=== PATIENT | male | born 1975 | race Caucasian/White ===

== ENCOUNTER 2022-08-17 22:11 | Emergency (ER) | payer OTHER, SELFPAY ==
[2022-08-17 22:34] VITALS: BP 153/103; PULSE 79; TEMP 36.2; O2SAT 98; BMI 38.3
[2022-08-17 23:29] VITALS: PULSE 85; O2SAT 98
--- NOTE | 2022-08-19 13:24 | ED.GENADULT ---
HPI - General Adult General Chief complaint: Ear/Nose/Throat Problem Stated complaint: Extra Duct in Ear Infected - Left Ear Time Seen by Provider: 08/17/22 22:34 History of Present Illness HPI narrative: 46-year-old man presenting to the emergency department with complaint of swelling and pain superior anterior to the left ear. Notes a history of pit or tract here for as long as he can remember. Other family members have the same. It is never really caused any trouble before. Over the last couple of days has become more tender and swollen. He was able to express some material from it earlier. Has had no fever. There has been no trauma otherwise. Pain is radiating in the area. Related Data Home Medications Medication Instructions Recorded Confirmed lisinopril 10 mg tablet mg 08/17/22 omeprazole 40 mg capsule,delayed mg 08/17/22 release Allergies Allergy/AdvReac Type Severity Reaction Status Date / Time No Known Drug Allergies Allergy Verified 08/17/22 22:34 Review of Systems Status of ROS: Reports: 6 or more systems reviewed and unremarkable except as noted in History and below PFSH PFS Social History Smoking Status: Former smoker How often do you have a drink containing alcohol: never How often do you have six or more drinks on one occasion: Never AUDIT-C Alcohol total score: 0 Non-prescribed substance use: denies use Exam Narrative: Exam Narrative: Pleasant. NAD. Skin is warm and dry. Head is atraumatic. There is what appears to be a preauricular pit ahead of the left upper ear. There is some mild swelling in the area and moderate tenderness. Mild calor but no marked erythema. Swelling does not really extend to the pin a. Ear canal is clear TMs clear. Opens and closes jaw without apparent difficulty. Const: Documenting provider has reviewed patient's vital signs: yes Course Vital Signs Vital signs: Initial Vital Signs Temperature 97.1 F L 08/17/22 22:34 Temperature Source Temporal Artery Scan 08/17/22 22:34 Pulse Rate 79 08/17/22 22:34 Blood Pressure 153/103 H 08/17/22 22:34 Blood Pressure Mean 119 08/17/22 22:34 Blood Pressure Position Sitting 08/17/22 22:34 Pulse Oximetry 98 08/17/22 22:34 Oxygen Delivery Method 08/17/22 22:34 Vital Signs Temperature 97.1 F L 08/17/22 22:34 Pulse Rate 79 08/17/22 22:34 Blood Pressure 153/103 H 08/17/22 22:34 Pulse Oximetry 98 08/17/22 22:34 Oxygen Delivery Method 08/17/22 22:34 Temperature 97.1 F L 08/17/22 22:34 Pulse Rate 85 08/17/22 23:29 Blood Pressure 153/103 H 08/17/22 22:34 Pulse Oximetry 98 08/17/22 23:29 Oxygen Delivery Method 08/17/22 23:29 Medical Decision Making MDM Narrative Medical decision making narrative: I do not see significant cellulitis here. Think the degree of discomfort he is having does indicate some infectious etiology. Potentially some sebaceous like material has reached to tipping point within this pre-auricular cyst. I did attempt after cleansing with Betadine, some expression. Very small point of possible sero-purulent material was expressed which I collected for wound culture. This was quite tender. Pain escalated then in a pulsatile manner. I do think antibiotics would be prudent. I am not convinced that this is excisable at this point. Discharge Plan Discharge Clinical Impression: Congenital pit, preauricular, Preauricular cyst Patient Disposition: Home, Self-Care Condition: Stable Additional Instructions: Culture will be pending here to better direct antibiotics if things are not improving. I would expect this to be more red and swollen tomorrow and may be even more so the next day. Be seen however if a good portion of the ear is becoming red/hot/swollen and especially if you have a fever. Warm moist packs might help mobilize some of this; apply a couple to 3 times daily. Can take up to 800 mg of ibuprofen or up to 1000 mg of acetaminophen per dose. Alternative to the ibuprofen might be up to 500 mg naproxen 2 times daily. Augmentin -- I think 8 days of antibiotic should be enough. [place] from [facility]. Each tablet has 325 mg of acetaminophen in it. Prescriptions: No Action omeprazole 40 mg capsule,delayed release(DR/EC) lisinopril 10 mg tablet Stand Alone [facility]: [facility] Info Instructions
== END 2022-08-17 23:44 | disposition home or self-care (01) ==
PROVIDERS: Emergency Provider Family Medicine; PCP Family Medicine
DX: Q18.1 Preauricular sinus and cyst (principal)
CPT/HCPCS: 87070; 87186; 99283

== ENCOUNTER 2022-08-23 07:53 | Emergency (ER) | payer OTHER, SELFPAY ==
[2022-08-23 07:58] VITALS: BP 127/85; PULSE 66; RESP 16; TEMP 36.2; O2SAT 98; BMI 38.3
[2022-08-23 10:20] LABS: Basophils Absolute Auto 0.04 K/uL (0.00-0.30); Basophils Percent Auto 0.5 % (0.0-3.0); Eosinophils Absolute Auto 0.09 K/uL (0.00-0.50); Eosinophils Percent Auto 1.2 % (0.0-7.0); Hematocrit 43.8 % (37.0-53.0); Hemoglobin* 14.7 gm/dL (13.5-17.5); Immature Granulocytes Abs Auto 0.02 K/uL (0.00-0.30); Immature Granulocytes Pct Auto 0.3 %; Lymphocytes Absolute Auto 1.95 K/uL (0.90-2.90); Lymphocytes Percent Auto 25.3 % (20-44); Mean Corpuscular HGB Conc 34 gm/dL (32-36); Mean Corpuscular Hemoglobin 31 pg (26-34); Mean Corpuscular Volume 93 fL (80-100); Monocytes Percent Auto 7.4 % (0.0-11.0); Neutrophils Absolute Auto 5.03 K/uL (1.7-7.0); Neutrophils Percent Auto 65.3 % (42.0-72.0); Platelet Count* 291 K/uL (140-440); RDW Coefficient of Variation % 11.1 % (11.5-15.5); Red Blood Count 4.71 m/uL (4.30-5.90)
[2022-08-23 10:27] LABS: Slide Review Reflex No
[2022-08-23 10:43] LABS: C Reactive Protein* 1.6 mg/dL (0.5-1.0)
--- NOTE | 2022-08-23 11:18 | PC.NURSE ---
up to the bathroom via ambulatory with the antibiotic continues to infuse. appointment set up for Tomorrow at 1030 (08/24/22)
[2022-08-23 12:27] LABS: Estimated Glomerular Filt Rate 93 ml/min
--- NOTE | 2022-08-23 13:05 | ED.GENADULT ---
HPI - General Adult General Date Seen: 08/23/22 Chief complaint: Ear/Nose/Throat Problem Stated complaint: Needs IV antibiotic Time Seen by Provider: 08/23/22 08:05 Source: patient History of Present Illness HPI narrative: Patient is a 46-year-old male who was seen here on the , 4 days ago. 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 It has not bothered him until few days ago when it started to drain a little bit became a little bit red a little bit painful. He was started on antibiotics to be on the safe side, cultures were sent of the fluid that was draining at that time. Those have since returned growing Enterococcus faecalis, sensitive to vancomycin, ampicillin, linezolid. He was started on Augmentin, had not felt like he was improving and in fact developed more redness and tenderness on the side of his face near his ear. He was seen at [facility] yesterday, switch to Bactrim, given a shot of Rocephin but presented there again due to failure to improve. He was told to come here for IV antibiotics. He denies any systemic complaints, no fevers, chills, weakness, vomiting. He has not had any drainage out of that area. Related Data Home Medications Medication Instructions Recorded Confirmed lisinopril 10 mg tablet 10 mg PO DAILY 08/17/22 08/23/22 omeprazole 40 mg capsule,delayed 40 mg PO DAILY 08/17/22 08/23/22 release Allergies Allergy/AdvReac Type Severity Reaction Status Date / Time No Known Drug Allergies Allergy Verified 08/23/22 08:07 Review of Systems Status of ROS: Reports: 10 or more systems reviewed and unremarkable except as noted in History and below [facility] Social History Smoking Status: Former smoker Do you use any of these nicotine containing products: None How often do you have a drink containing alcohol: never How often do you have six or more drinks on one occasion: Never AUDIT-C Alcohol total score: 0 Non-prescribed substance use: denies use Exam Narrative: Exam Narrative: Vital signs as noted above. In general, an alert, well-appearing patient. Head: Normocephalic, atraumatic. Eyes: Pupils are equal reactive. Extraocular movements are full. Conjunctivae are normal. ENT: Mucous membranes are moist. Throat is normal. At the junction of the upper left ear with the skull, he has induration, erythema, mild tenderness. There is no fluctuance, I do not see any drainable fluid collection. TM is normal. The remainder of the pinna is normal. Everything on the right is normal. Neck: Supple without lymphadenopathy. Heart: Regular rate and rhythm. No murmur or rub. Lungs: Clear bilaterally. No increased work of breathing, crackles or wheezes. Neurologic: Patient is alert and oriented to person and place. Speech is fluent. Face is symmetric. Moves all extremities equally. Affect: Normal. Skin: Warm and dry. Well perfused. Const: Vital Signs, click to edit/add: Vital Signs - 24 hr 08/23/22 07:58 Temperature 97.1 F L Pulse Rate [Right Pulse Oximeter] 66 Respiratory Rate 16 Blood Pressure [Ri ght Upper Arm] 127/85 Pulse Oximetry 98 Oxygen Delivery Me thod Room Air Documenting provider has reviewed patient's vital signs: yes Course Course Hospital Course: I checked a white count and a CRP, these are pretty unremarkable. White blood cell count is normal and CRP is 1.6. Given the susceptibilities of the Enterococcus, I do think IV antibiotics are going to be our best bet. I gave him vancomycin here. He is systemically well appearing, certainly do not see any indication otherwise for admission to the hospital and he would strongly prefer to get IV antibiotics as an outpatient even if it means he has to come back to the hospital couple times a day. I did talk with Dr. Morton, who would be willing to fit him in in a couple of days to evaluating clinic. The sinus tract will need to be excised, but we need to get the infection under control 1st. Will continue vancomycin q.12 hours for a couple of days here and then have him see Dr. Morton in in clinic. If at any time he is acutely worsening, develops fever, chills, spreading cellulitis, he should return to the ER more urgently. Vital Signs Vital signs: Initial Vital Signs Temperature 97.1 F L 08/23/22 07:58 Temperature Source Temporal Artery Scan 08/23/22 07:58 Pulse Rate 66 08/23/22 07:58 Respiratory Rate 16 08/23/22 07:58 Blood Pressure 127/85 08/23/22 07:58 Blood Pressure Mean 99 08/23/22 07:58 Blood Pressure Position Sitting 08/23/22 07:58 Pulse Oximetry 98 08/23/22 07:58 Oxygen Delivery Method 08/23/22 07:58 Vital Signs Temperature 97.1 F L 08/23/22 07:58 Pulse Rate 66 08/23/22 07:58 Respiratory Rate 16 08/23/22 07:58 Blood Pressure 127/85 08/23/22 07:58 Pulse Oximetry 98 08/23/22 07:58 Oxygen Delivery Method 08/23/22 07:58 Temperature 97.1 F L 08/23/22 07:58 Pulse Rate 66 08/23/22 07:58 Respiratory Rate 16 08/23/22 07:58 Blood Pressure 127/85 08/23/22 07:58 Pulse Oximetry 98 08/23/22 07:58 Oxygen Delivery Method 08/23/22 07:58 Medical Decision Making Lab Data Labs: Lab Results 08/23/22 08/23/22 08/23/22 Range/Units 10:13 10:13 10:13 WBC 7.70 (4.50-11.00) K/uL RBC 4.71 (4.30-5.90) m/uL Hgb 14.7 (13.5-17.5) gm/dL Hct 43.8 (37.0-53.0) % MCV 93 (80-100) fL MCH 31 (26-34) pg MCHC 34 (32-36) gm/dL RDW Coeff of Guillermo 11.1 L (11.5-15.5) % Plt Count 291 (140-440) K/uL Neut % (Auto) 65.3 (42.0-72.0) % Lymph % (Auto) 25.3 (20-44) % Heard % (Auto) 7.4 (0.0-11.0) % Eos % (Auto) 1.2 (0.0-7.0) % Baso % (Auto) 0.5 (0.0-3.0) % Neut # (Auto) 5.03 (1.7-7.0) K/uL Lymph # (Auto) 1.95 (0.90-2.90) K/uL Heard # (Auto) 0.60 (0.00-0.90) K/UL Eos # (Auto) 0.09 (0.00-0.50) K/uL Baso # (Auto) 0.04 (0.00-0.30) K/uL Creatinine 1.0 (0.5-1.5) mg/dL Estimated Creat Clear 103.20 Estimated GFR 93 ml/min C-Reactive Protein 1.6 H (0.5-1.0) mg/dL Discharge Plan Discharge Clinical Impression: Cellulitis, Congenital pit, preauricular Patient Disposition: Home, Self-Care Condition: Stable Instructions: Cellulitis (ED) Additional Instructions: Return daily for IV vancomycin as discussed. Follow-up with Dr. Morton on Tuesday. Call [phone] to schedule. You can let them know that I spoke with him, and he said they could over book you on Tuesday in his clinic, as he will likely not have any open appointments. If you have worsening, fevers, spreading redness, vomiting, chills, or other worsening, return to the ER at any time. You do not need to continue your oral antibiotics for now. Arrangements made for Vancomycin infusion as an outpatient for 08/24/22 at 1030 in the infusion center at the hospital. Prescriptions: No Action omeprazole 40 mg capsule,delayed release(DR/EC) 40 mg PO DAILY lisinopril 10 mg tablet 10 mg PO DAILY Follow Up/Referrals: David Melvin MD [Primary Care Provider] - Stand Alone Forms: [employer] Info Instructions
== END 2022-08-23 12:09 | disposition home or self-care (01) ==
PROVIDERS: Emergency Provider Emergency Medicine; PCP Family Medicine
DX: Q18.1 Preauricular sinus and cyst (principal); L03.90 Cellulitis, unspecified
CPT/HCPCS: 36415; 82565; 85025; 86140; 96365; 99284; J3370; J7120

== ENCOUNTER 2022-08-24 17:05 | Emergency (ER) | payer OTHER, SELFPAY | END 2022-08-24 17:39 | disposition left against medical advice (07) | LOC: ED 17:28 | PROVIDERS: PCP Family Medicine | DX: Z53.21 Procedure and treatment not carried out due to patient leaving prior to being seen by health care provider (principal) | CPT/HCPCS: 99199 ==

== ENCOUNTER 2022-08-25 08:15 | Outpatient (RCR) | payer OTHER, SELFPAY ==
[2022-08-23 21:45] VITALS: BP 151/88; PULSE 71; RESP 18; TEMP 36.9; O2SAT 98
[2022-08-23] MEDS: 0.9 % SODIUM CHLORIDE 250 ml IV (22:03)
[2022-08-23] MEDS: SODIUM CHLORIDE 0.9 % (FLUSH) 10 ML SYRINGE 5 ML IVF (22:03)
[2022-08-23 23:40] VITALS: BP 141/85; PULSE 60; RESP 18; TEMP 36.4; O2SAT 98
--- NOTE | 2022-08-24 00:47 | PC.NURSE ---
Infusion: Pt tolerated Vanco infusion w/o complication, VS WNL
[2022-08-24 09:17] VITALS: BP 124/78; PULSE 70; RESP 16; TEMP 36.1; O2SAT 97
[2022-08-24] MEDS: SODIUM CHLORIDE 0.9 % (FLUSH) 10 ML SYRINGE 5 ML IVF (20:04)
[2022-08-24 20:05] VITALS: BP 142/84; PULSE 75; RESP 18; TEMP 36.8; O2SAT 98
[2022-08-24 21:55] VITALS: BP 135/83; PULSE 72; RESP 18; TEMP 36.8; O2SAT 98
--- NOTE | 2022-08-24 22:12 | PC.NURSE ---
Infusion note: Vanco infusion completed with no complications, VS stable, IV intact.
[2022-08-25 08:00] VITALS: BP 154/84; PULSE 83; RESP 16; TEMP 35.8; O2SAT 97
--- NOTE | 2022-08-25 09:52 | ONC.NURNOTE ---
Addendum entered by Marlene Miles RN 08/25/22 10:32: Report called to Sherrell VILLA in the Emergency room. Original Note: Pt here for Vancomycin this morning. Pt states left ear pain became worse last evening around 530pm. Pt did go into the ER last evening, but left d/t ER being busy. Pt received evening dose of Vanco last evening in the medsurg dept. This morning, pt rates pain 6/10, ear is more red and swollen, pt has slight swelling under left eye. Pt also states his hearing is started to sound more muffled. Supervisor Rod Placing called and spoke to Dr. Jackson's nurse at the [facility]. After discussing symptoms with dyan Jerry RN pt should be seen in the Emergency room. Supervisor Rod Placing explained Andi's recommendations and verbalized understanding of plan of care.
--- NOTE | 2022-08-25 13:54 | PC.NURSE ---
Patient came to Med/Surg unit at 1345 to let staff know that per ED doctor patient no longer needed to come as outpatient for Vanco infusion effective today.
== END 2023-02-19 23:59 | disposition home or self-care (01) ==
LOC: CCIC 08:15
PROVIDERS: PCP Family Medicine; Referring Provider Family Medicine; Visit Provider Emergency Medicine
DX: H60.02 Abscess of left external ear (principal); H60.12 Cellulitis of left external ear
CPT/HCPCS: 96365; 96366; 99211; J3370; J7050; J7120

== ENCOUNTER 2022-08-25 10:14 | Emergency (ER) | payer OTHER, SELFPAY ==
[2022-08-25 10:35] VITALS: BP 133/87; PULSE 81; RESP 18; TEMP 36.3; O2SAT 97
--- NOTE | 2022-08-25 13:24 | ED.GENADULT ---
HPI - General Adult General Chief complaint: Ear/Nose/Throat Problem Stated complaint: Cellulitis Time Seen by Provider: 08/25/22 10:53 History of Present Illness HPI narrative: This 46-year-old male comes in with a preauricular abscess for which she has been receiving IV vancomycin x5 doses. He comes in today stating that he is feeling worse and that the redness and pain have increased. He was post to see Dr. 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 [facility] today but there were no appointments available. He does not report any fevers. Related Data Home Medications Medication Instructions Recorded Confirmed lisinopril 10 mg tablet 10 mg PO DAILY 08/17/22 08/23/22 omeprazole 40 mg capsule,delayed 40 mg PO DAILY 08/17/22 08/23/22 release Previous Rx's Medication Instructions Recorded hydrocodone 5 mg-acetaminophen 325 1 tab PO Q4-6H PRN pain #12 tabs 08/25/22 mg tablet levofloxacin 500 mg tablet 500 mg PO DAILY 10 days #10 tabs 08/25/22 Allergies Allergy/AdvReac Type Severity Reaction Status Date / Time No Known Drug Allergies Allergy Verified 08/24/22 09:16 Review of Systems Status of ROS: Reports: 10 or more systems reviewed and unremarkable except as noted in History and below Narrative: Constitutional: No fevers, no weight gain or loss. Eyes: No discharge. No vision changes. HENT: No congestion, no sore throat, Cardiovascular: No chest pain, no palpitations. Respiratory: No shortness of breath, no wheezes, no cough. Gastrointestinal: No abdominal pain, no vomiting, no diarrhea. Genitourinary: No dysuria, no hematuria. Musculoskeletal: Normal range of motion. Skin: No rashes, no pruritis. Cellulitis and abscess anterior to the left ear. Neurological: No dizziness, weakness, sensory change, speech change. Endo/Heme/Allergies: No bruising or bleeding. No polydipsia. Pysch: no suicidality, no anxiety, no insomnia. All other systems reviewed and are negative. [facility], [facility] PFS Social History Smoking Status: Former smoker Do you use any of these nicotine containing products: None How often do you have a drink containing alcohol: never How often do you have six or more drinks on one occasion: Never AUDIT-C Alcohol total score: 0 Non-prescribed substance use: denies use Exam Narrative: Exam Narrative: Constitutional: Well-developed, well-nourished, no acute distress. HEENT: Erythema with swelling anterior to the left ear and extending superiorly and a bit inferiorly but not into the anterior neck. Neck: Normal range of motion. Nontender. Supple. Heart: Intact distal pulses. Lungs: No chest discomfort. No wheezes, rhonchi, or rales. Abdomen: Nontender. Back: Normal range of motion. Extremities: Normal range of motion. No injury. Skin: Intact. No rash. Warm. No erythema or pallor. Neurologic: No altered sensation. No weakness. Alert and oriented. Psychiatric: No suicidality. No anxiety or depression. No insomnia. Nursing notes and vitals signs are reviewed. Const: Vital Signs, click to edit/add: Vital Signs - 24 hr 08/25/22 10:35 Temperature 97.4 F L Pulse Rate [Pulse Oximeter] 81 Respiratory Rate 18 Blood Pressure [Ri t Upper Arm] 133/87 Pulse Oximetry 97 Oxygen Delivery Me thod Room Air Course Vital Signs Vital signs: Initial Vital Signs Temperature 97.4 F L 08/25/22 10:35 Temperature Source Temporal Artery Scan 08/25/22 10:35 Pulse Rate 81 08/25/22 10:35 Pulse Rhythm 08/25/22 10:35 Respiratory Rate 18 08/25/22 10:35 Blood Pressure 133/87 08/25/22 10:35 Blood Pressure Mean 102 08/25/22 10:35 Blood Pressure Position Sitting 08/25/22 10:35 Pulse Oximetry 97 08/25/22 10:35 Oxygen Delivery Method 08/25/22 10:35 Vital Signs Temperature 97.4 F L 08/25/22 10:35 Pulse Rate 81 08/25/22 10:35 Respiratory Rate 18 08/25/22 10:35 Blood Pressure 133/87 08/25/22 10:35 Pulse Oximetry 97 08/25/22 10:35 Oxygen Delivery Method 08/25/22 10:35 Temperature 97.4 F L 08/25/22 10:35 Pulse Rate 81 08/25/22 10:35 Respiratory Rate 18 08/25/22 10:35 Blood Pressure 133/87 08/25/22 10:35 Pulse Oximetry 97 08/25/22 10:35 Oxygen Delivery Method 08/25/22 10:35 Medical Decision Making MDM Narrative Medical decision making narrative: This patient comes in with an abscess that has been treated with vancomycin. A culture grew out Enterococcus. He had received an IM injection of Rocephin and an oral antibiotic but these were not effective for this particular abscess. So he is receiving vancomycin but his symptoms continued to worsen. I did use bedside ultrasound to identify a drainable abscess that was rather close to the surface. I did consult with Dr. Jairo Tam who recommended incision and drainage and wants to see him in clinic next week. After cleansing the area with alcohol and anesthesia with 1% lidocaine with epinephrine, I used a 11. Blade to incise over the abscess. This brought about immediate purulent drainage. Approximately 1-2 mL of fluid was drained. I did place iodoform gauze to keep the wound open. The patient will make a follow-up appointment [facility]. He did receive a prescription for some tablets of [place]. Discharge Plan Discharge Clinical Impression: Abscess, Preauricular cyst Patient Disposition: Home, Self-Care Condition: Improved Prescriptions: New hydrocodone-acetaminophen 5-325 mg tablet 1 tab PO Q4-6H PRN (Reason: pain) Qty: 12 0RF levofloxacin 500 mg tablet 500 mg PO DAILY 10 Days Qty: 10 0RF No Action omeprazole 40 mg capsule,delayed release(DR/EC) 40 mg PO DAILY lisinopril 10 mg tablet 10 mg PO DAILY Follow Up/Referrals: David Melvin MD [Primary Care Provider] - Stand Alone Forms: [employer] Info Instructions
== END 2022-08-25 13:45 | disposition home or self-care (01) ==
PROVIDERS: Emergency Provider Emergency Medicine Emergency Medical Services; PCP Family Medicine
DX: Q18.1 Preauricular sinus and cyst (principal)
CPT/HCPCS: 10060; 99283; 99284

== ENCOUNTER 2022-10-04 03:22 | Emergency (ER) | payer OTHER, SELFPAY ==
[2022-10-04] VITALS (7 sets, daily range): BP systolic 116–154; BP diastolic 78–88; PULSE 98–110; RESP 16–20; TEMP 36.7; O2SAT 95–99; BMI 36.7
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
--- NOTE | 2022-10-04 03:33 | CRLHL7_ITS ---
For Patients: As a result of the Cures Act, medical imaging exams and procedure reports are released immediately into your electronic medical record. You may view this report before your referring provider. If you have questions, please contact your health care provider. INDICATION: Lumbar spine pain TECHNIQUE: Lumbar spine radiograph 2 views COMPARISON: None FINDINGS: Bone: No acute fractures or aggressive bone lesions are identified. Alignment is normal. The L1 vertebral body is partially excluded. Disc: The disc spaces are unremarkable in appearance. The facet joints are unremarkable. Soft tissue: Unremarkable. No radiopaque foreign bodies are seen. IMPRESSION: 1. No acute osseous injuries or abnormalities are noted. Dictated by: Wilfredo Schumacher MD @ 10/04/2022 03:54:35 (Electronically Signed)
--- NOTE | 2022-10-04 03:33 | CRLHL7_ITS ---
For Patients: As a result of the Century Cures Act, medical imaging exams and procedure reports are released immediately into your electronic medical record. You may view this report before your referring provider. If you have questions, please contact your health care provider. INDICATION: Thoracic spine pain TECHNIQUE: Thoracic spine radiograph 4 views COMPARISON: None FINDINGS: The sensitivity and specificity of the exam are moderately limited by the patient`s body habitus. Bone: Minimal compression deformities of T11-L1 are noted and may be chronic. Alignment is normal. Disc: Unremarkable. The facet joints are unremarkable. Soft tissue: Unremarkable. No radiopaque foreign bodies are seen. IMPRESSION: 1. Minimal compression deformities of T11-L1 are noted and may be chronic. Correlation with physical exam for focal tenderness in this region is recommended to exclude an acute fracture if there is history of recent trauma. Dictated by Wilfredo Schumacher MD @ 10/04/2022 3:55:40 AM Dictated by: Wilfredo Schumacher MD @ 10/04/2022 03:55:50 (Electronically Signed)
[2022-10-04 03:41] LABS: HCO3 VBG 23 mmol/L (21-28); PCO2 VBG 38 mmHG (40-50); PO2 VBG 45.5 mmHG (25-47); pH VBG 7.379 (7.32-7.43)
[2022-10-04 03:42] LABS: Basophils Percent Auto 0.2 % (0.0-3.0); Eosinophils Percent Auto 0.6 % (0.0-7.0); Hematocrit 45.9 % (37.0-53.0); Hemoglobin* 15.9 gm/dL (13.5-17.5); Immature Granulocytes Pct Auto 1.3 %; Lymphocytes Percent Auto 16.7 % (20-44); Mean Corpuscular HGB Conc 35 gm/dL (32-36); Mean Corpuscular Hemoglobin 31 pg (26-34); Mean Corpuscular Volume 88 fL (80-100); Monocytes Percent Auto 4.5 % (0.0-11.0); Neutrophils Percent Auto 76.7 % (42.0-72.0); Platelet Count* 324 K/uL (140-440); RDW Coefficient of Variation % 11.2 % (11.5-15.5); Red Blood Count 5.22 m/uL (4.30-5.90); White Blood Count* 12.56 K/uL (4.50-11.00)
[2022-10-04 03:43] LABS: Lactate* 4.4 mmol/L (0.5-1.9)
[2022-10-04 03:43] LABS: Slide Review Reflex No
[2022-10-04 03:45] LABS: Albumin* 4.6 g/dL (3.3-5.0); Chloride* 103 mmol/L (96-114)
[2022-10-04 03:46] LABS: Potassium* 3.9 mmol/L (3.6-5.1); Sodium* 134 mmol/L (135-149)
[2022-10-04 03:48] LABS: Bilirubin Total* 0.9 mg/dL (0.1-1.5); Carbon Dioxide* 19 mmol/L (20-32); Creatinine* 1.3 mg/dL (0.5-1.5); Est. Creatinine Clearance* 78.53; Estimated Glomerular Filt Rate 68 ml/min
[2022-10-04 03:49] LABS: Alanine Aminotransferase* 39 U/L (4-50); Alkaline Phosphatase* 73 U/L (40-150); Aspartate Amino Transferase* 39 U/L (12-35); Blood Urea Nitrogen* 17 mg/dL (5-24); Glucose* 191 mg/dL (60-115)
[2022-10-04] MEDS: 0.9 % SODIUM CHLORIDE 1000 ml 1,000 ML 500 ML IV (03:50)
[2022-10-04 03:52] LABS: Ethanol* < 0.01 % (0.01-0.03)
[2022-10-04 03:59] LABS: NT Pro B Type NatriureticPept* 20 pg/mL
[2022-10-04 04:01] LABS: Troponin I* < 0.01 ng/mL (0.01-0.04)
[2022-10-04] MEDS: ACETAMINOPHEN 500 MG TABLET 1000 MG PO (04:19)
[2022-10-04] MEDS: diazePAM 5 MG TABLET PO (04:19)
[2022-10-04] MEDS: KETOROLAC 15 MG/ML inj IVP (04:31)
== END 2022-10-04 04:48 | disposition home or self-care (01) ==
PROVIDERS: Emergency Provider Family Medicine; PCP Family Medicine
DX: R56.9 Unspecified convulsions (principal)
CPT/HCPCS: 36415; 70450; 72070; 72100; 80053; 80306; 81003; 82077; 82803; 83605; 83880; 84484; 85025; 93005; 94761; 96374; 99284; 99285; A9270; J1885; J7030